=== PATIENT | female | born 1980 | race Two or more races ===

== ENCOUNTER 2022-11-13 05:56 | Day surgery (SDC) | payer OTHER ==
[~2022-11-13] VITALS: Ht 160 cm; Wt 78.0 kg
[~2022-11-13 05:56] MED LIST: IMODIUM A-D2 M2 PO; LEVSIN/SL0.125 MG SL; MOUNJARO15 MG/0.5; PEPCID40 MG PO; ZANTAC25 MG/1 ML
[2022-11-13] MEDS ORDERED: RECTICARE30 GM TOP (08:36)
[2022-11-13] MEDS ORDERED: PERCOCET 5-3251 EACH PO (08:36)
== END 2022-11-13 12:00 | disposition home or self-care (01) ==
LOC: CIR.AMB 05:56
PROVIDERS: ATTEND Surgery
DX: K60.3 Anal fistula (principal); Z20.822 Contact with and (suspected) exposure to COVID-19; I10 Essential (primary) hypertension

== ENCOUNTER 2023-03-01 06:25 | Day surgery (SDC) | payer OTHER ==
[~2023-03-01] VITALS: Ht 160 cm; Wt 73.5 kg
[~2023-03-01 06:25] MED LIST changes: +PERCOCET 5-3251 EACH PO; +RECTICARE30 GM TOP
[2023-03-01] MEDS ORDERED: RECTICARE30 GM TOP (08:47)
[2023-03-01] MEDS ORDERED: PERCOCET 5-3251 EACH PO (08:47)
[2023-03-01] MEDS ORDERED: METRONIDAZOLE500 MG PO (08:48)
== END 2023-03-01 12:45 | disposition home or self-care (01) ==
LOC: CIR.AMB 06:25
PROVIDERS: ATTEND Surgery
DX: K60.3 Anal fistula (principal); I10 Essential (primary) hypertension; Z20.822 Contact with and (suspected) exposure to COVID-19